=== PATIENT | female | born 1935 | race Caucasian/White ===

== ENCOUNTER 2017-10-29 12:19 | Emergency (ER) | payer OTHER, BC ==
[~2017-10-29] VITALS: Ht 152.4 cm; Wt 43.1 kg
[2017-10-29 12:28] VITALS: Ht 152.4 cm; Wt 43.1 kg
[2017-10-29 15:00] VITALS: BP 130/66
== END 2017-10-29 15:00 | disposition home or self-care (01) ==
LOC: ED 12:19
DX: S00.83XA Contusion of other part of head, initial encounter (principal); S60.311A Abrasion of right thumb, initial encounter; S50.312A Abrasion of left elbow, initial encounter; J44.9 Chronic obstructive pulmonary disease, unspecified; F03.90 Unspecified dementia, unspecified severity, without behavioral disturbance, psychotic disturbance, mood disturbance, and anxiety; G25.81 Restless legs syndrome; Z88.0 Allergy status to penicillin; W01.198A Fall on same level from slipping, tripping and stumbling with subsequent striking against other object, initial encounter; Y93.89 Activity, other specified; Y99.8 Other external cause status; Y92.89 Other specified places as the place of occurrence of the external cause

== ENCOUNTER 2017-11-13 15:44 | Emergency (ER) | payer OTHER, BC ==
[~2017-11-13] VITALS: Ht 154.9 cm; Wt 43.5 kg
[2017-11-13 15:59] VITALS: Ht 154.9 cm; Wt 43.5 kg
[2017-11-13 17:03] VITALS: BP 155/75
== END 2017-11-13 17:03 | disposition home or self-care (01) ==
LOC: ED 15:44
DX: K62.3 Rectal prolapse (principal); N81.10 Cystocele, unspecified; Z88.0 Allergy status to penicillin; Z90.710 Acquired absence of both cervix and uterus; J44.9 Chronic obstructive pulmonary disease, unspecified

== ENCOUNTER 2017-12-05 20:11 | Inpatient (IN) | payer OTHER, BC ==
[~2017-12-05] VITALS: Ht 157.5 cm; Wt 44.0 kg
[2017-12-05 20:31] VITALS: Ht 157.5 cm; Wt 44.0 kg
[2017-12-05] MEDS ORDERED: ADDERALL XR20 MG PO (21:49)
[2017-12-05] MEDS ORDERED: ALBUTEROL SULFAT3 ML NEB (21:49)
[2017-12-05] MEDS ORDERED: FLUOXETINE HYDR20 M2 PO (21:50)
[2017-12-05] MEDS ORDERED: SYNTHROID0.075 MG PO (21:50)
[2017-12-05] MEDS ORDERED: NOR5 PO (21:50)
[2017-12-05] MEDS ORDERED: PREMARIN V0.625 MG/G VG (21:51)
[2017-12-05] MEDS ORDERED: PREMARIN0.3 MG PO (21:51)
[2017-12-05] MEDS ORDERED: REQUIP0.5 MG PO (21:51)
[2017-12-05] MEDS ORDERED: DIOVAN160 MG PO (21:52)
[2017-12-05] MEDS ORDERED: ALBUTEROL SULFAT0.51 NEB (21:53)
[2017-12-05] MEDS ORDERED: ATRUD HHN (21:53)
[2017-12-05 21:55] LABS: PLATELET COUNT 375 x10^3mcL (130-400)
[2017-12-05 22:07] LABS: CALCIUM 8.6 mg/dL (8.5-10.1); CARBON DIOXIDE 27.3 mmol/L (21-32); CHLORIDE SERUM 107 mmol/L (98-107); CREATININE SERUM 0.9 mg/dL (0.6-1.0); GLUCOSE SERUM 105 mg/dL (74-106); POTASSIUM SERUM 4.1 mmol/L (3.5-5.1); SODIUM SERUM 140 mmol/L (136-145)
[2017-12-05 22:16] LABS: RED CELL DISTRIBUTION WIDTH 18.1 % (11.5-14.5)
[2017-12-05 22:18] LABS: BAND NEUTROPHIL 2 % (0-10); MONOCYTE 7 % (0-7); SEGMENTED NEUTROPHILS 71 % (37-75); rbc morphology (normal/abnorm) ABNORMAL (NORMAL)
[2017-12-05 22:19] LABS: PLATELET MORPHOLOGY PLATELETS NORMAL
[2017-12-05 22:39] VITALS: BP 135/52
[2017-12-05 22:59] LABS: T3 TOTAL 1.02 ng/mL
[2017-12-05 23:13] LABS: MAGNESIUM 1.9 mg/dL (1.8-2.4); PHOSPHOROUS 4.2 mg/dL (2.5-4.9)
[2017-12-05 23:17] LABS: CHOLESTEROL/HDL RATIO 1.9
[2017-12-05 23:37] LABS: FREE T4 1.12 ng/dL (0.76-1.46); FREE THYROXINE INDEX 3.3 ug/dL (1.4-4.5); T4(THYROXINE) 9.6 ug/dL (4.7-13.3)
[2017-12-06 01:05] VITALS: BP 125/52
[2017-12-06 01:31] LABS: RED BLOOD CELLS 3.97 M/mm3 (4.10-5.10)
[2017-12-06 01:45] LABS: TOTAL IRON BINDING CAPACITY 358 ug/dL (250-450)
[2017-12-06 01:47] LABS: IRON 26 ug/dL (50-170)
[2017-12-06 03:31] LABS: microscopic required? YES; urine erythrocyte NEGATIVE (NEGATIVE)
[2017-12-06 03:32] LABS: UA SPECIFIC GRAVITY 1.025T (1.005-1.035)
[2017-12-06 05:15] VITALS: BP 138/42
[2017-12-06 06:42] LABS: BASOPHIL % 0.7 % (0-2); PLATELET COUNT 364 x10^3mcL (130-400)
[2017-12-06 06:56] LABS: CALCIUM 8.3 mg/dL (8.5-10.1); CARBON DIOXIDE 27.4 mmol/L (21-32); CHLORIDE SERUM 109 mmol/L (98-107); CREATININE SERUM 0.7 mg/dL (0.6-1.0); GLUCOSE SERUM 71 mg/dL (74-106); PHOSPHOROUS 3.5 mg/dL (2.5-4.9); POTASSIUM SERUM 3.8 mmol/L (3.5-5.1); SODIUM SERUM 142 mmol/L (136-145)
[2017-12-06 07:00] LABS: RED CELL DISTRIBUTION WIDTH 17.9 % (11.5-14.5)
[2017-12-06 08:51] VITALS: BP 115/49
[2017-12-06 12:56] VITALS: BP 143/56
[2017-12-06 17:07] VITALS: BP 156/73
[2017-12-06] MEDS ORDERED: ADDERALL20 MG PO (18:13)
[2017-12-06 20:47] VITALS: BP 155/45
[2017-12-07 05:31] VITALS: BP 126/51
[2017-12-07 07:00] LABS: ALKALINE PHOSPHATASE 84 U/L (46-116); ALT/SGPT 19 U/L (14-59); AST/SGOT 36 U/L (15-37); BILIRUBIN TOTAL 0.25 mg/dL (0.20-1.00); CALCIUM 8.4 mg/dL (8.5-10.1); CARBON DIOXIDE 27.3 mmol/L (21-32); CHLORIDE SERUM 101 mmol/L (98-107); CREATININE SERUM 0.6 mg/dL (0.6-1.0); GLUCOSE SERUM 86 mg/dL (74-106); MAGNESIUM 1.8 mg/dL (1.8-2.4); PHOSPHOROUS 3.3 mg/dL (2.5-4.9); POTASSIUM SERUM 3.9 mmol/L (3.5-5.1); SODIUM SERUM 137 mmol/L (136-145)
[2017-12-07 07:04] LABS: ALBUMIN 2.5 g/dL (3.4-5.0); TOTAL PROTEIN, SERUM 5.6 g/dL (6.4-8.2)
[2017-12-07 08:27] LABS: PLATELET COUNT 359 x10^3mcL (130-400)
[2017-12-07 08:28] LABS: RED CELL DISTRIBUTION WIDTH 17.8 % (11.5-14.5)
[2017-12-07 08:45] VITALS: BP 117/51
[2017-12-07 11:22] LABS: ATYPICAL LYMPH 2 %; BAND NEUTROPHIL 0 % (0-10); MONOCYTE 8 % (0-7); SEGMENTED NEUTROPHILS 58 % (37-75)
[2017-12-07 11:23] LABS: BASOPHIL 2 % (0-2)
[2017-12-07 12:11] LABS: PLATELET MORPHOLOGY PLATELETS NORMAL; rbc morphology (normal/abnorm) ABNORMAL (NORMAL)
[2017-12-07 12:48] VITALS: BP 148/59
[2017-12-07 15:54] VITALS: BP 126/57
[2017-12-07 20:55] VITALS: BP 153/58
[2017-12-08 05:29] VITALS: BP 151/65
[2017-12-08 06:27] LABS: CALCIUM 8.4 mg/dL (8.5-10.1); CARBON DIOXIDE 28.2 mmol/L (21-32); CHLORIDE SERUM 103 mmol/L (98-107); CREATININE SERUM 0.7 mg/dL (0.6-1.0); GLUCOSE SERUM 91 mg/dL (74-106); POTASSIUM SERUM 3.7 mmol/L (3.5-5.1); SODIUM SERUM 139 mmol/L (136-145)
[2017-12-08 07:24] LABS: BASOPHIL % 0.2 % (0-2); PLATELET COUNT 385 x10^3mcL (130-400)
[2017-12-08 07:30] LABS: RED CELL DISTRIBUTION WIDTH 17.7 % (11.5-14.5)
[2017-12-08 09:36] VITALS: BP 145/67
[2017-12-08 18:02] VITALS: BP 136/55
[2017-12-08 21:13] VITALS: BP 137/54
[2017-12-09 06:05] VITALS: BP 136/57
[2017-12-09 06:37] LABS: PLATELET COUNT 361 x10^3mcL (130-400)
[2017-12-09 06:42] LABS: RED CELL DISTRIBUTION WIDTH 17.8 % (11.5-14.5)
[2017-12-09 06:54] LABS: CALCIUM 8.6 mg/dL (8.5-10.1); CARBON DIOXIDE 28.3 mmol/L (21-32); CHLORIDE SERUM 103 mmol/L (98-107); CREATININE SERUM 0.6 mg/dL (0.6-1.0); GLUCOSE SERUM 86 mg/dL (74-106); POTASSIUM SERUM 3.7 mmol/L (3.5-5.1); SODIUM SERUM 137 mmol/L (136-145)
[2017-12-09 08:46] LABS: MONOCYTE 6 % (0-7); SEGMENTED NEUTROPHILS 73 % (37-75); rbc morphology (normal/abnorm) NORMAL (NORMAL)
[2017-12-09 10:48] VITALS: BP 116/57
[2017-12-09 17:42] VITALS: BP 132/60
[2017-12-09 20:52] VITALS: BP 154/60
[2017-12-10 05:35] VITALS: BP 142/87
[2017-12-10 08:49] VITALS: BP 122/66
[2017-12-10] MEDS ORDERED: FER300 PO (09:04)
[2017-12-10] MEDS ORDERED: LORAZEPAM0.5 MG PO (09:14)
[2017-12-10] MEDS ORDERED: VITC PO (09:14)
[2017-12-10] MEDS ORDERED: COL100 PO (09:15)
[2017-12-10] MEDS ORDERED: MOT800 PO (09:36)
[2017-12-10 10:46] VITALS: BP 122/66
[2017-12-10 13:17] VITALS: BP 117/66
[2017-12-10 13:19] VITALS: BP 120/63
== END 2017-12-10 13:31 | disposition home or self-care (01) | DRG 393 ==
LOC: ED 20:11 → DU 21:53 → MU 21:53 → DU 22:33 → MU 12-08 10:44
PROVIDERS: Emergency Medicine; Family Medicine
DX: K62.3 Rectal prolapse (principal); G93.41 Metabolic encephalopathy; E43 Unspecified severe protein-calorie malnutrition; N17.0 Acute kidney failure with tubular necrosis; N39.0 Urinary tract infection, site not specified; R64 Cachexia; N81.89 Other female genital prolapse; N81.12 Cystocele, lateral; G30.9 Alzheimer's disease, unspecified; F02.80 Dementia in other diseases classified elsewhere, unspecified severity, without behavioral disturbance, psychotic disturbance, mood disturbance, and anxiety; J45.909 Unspecified asthma, uncomplicated; I10 Essential (primary) hypertension; G25.81 Restless legs syndrome; D50.9 Iron deficiency anemia, unspecified; D63.8 Anemia in other chronic diseases classified elsewhere; M47.812 Spondylosis without myelopathy or radiculopathy, cervical region; E87.8 Other disorders of electrolyte and fluid balance, not elsewhere classified; E02 Subclinical iodine-deficiency hypothyroidism; N95.2 Postmenopausal atrophic vaginitis; N81.10 Cystocele, unspecified; Z68.20 Body mass index [BMI] 20.0-20.9, adult; Z88.0 Allergy status to penicillin; Z88.1 Allergy status to other antibiotic agents; E86.0 Dehydration
CPT/HCPCS: 83880; 84439; 97110-GP; 97116-GP; 97530-GP; J0696; J2060; J2270; J2405; J2916; J3010; J7030; J7620; Q0092

== ENCOUNTER 2018-07-18 02:29 | Emergency (ER) | payer OTHER, BC ==
[~2018-07-18] VITALS: Ht 152.4 cm; Wt 45.4 kg
[~2018-07-18 02:29] MED LIST: ADDERALL XR20 MG PO; ADDERALL20 MG PO; ALBUTEROL SULFAT0.51 NEB; ALBUTEROL SULFAT3 ML NEB; ATRUD HHN; COL100 PO; DIOVAN160 MG PO; FER300 PO; FLUOXETINE HYDR20 M2 PO; LORAZEPAM0.5 MG PO; MOT800 PO; NOR5 PO; PREMARIN V0.625 MG/G VG; PREMARIN0.3 MG PO; REQUIP0.5 MG PO; SYNTHROID0.075 MG PO; VITC PO
[2018-07-18 02:37] VITALS: Ht 152.4 cm; Wt 45.4 kg
[2018-07-18 04:05] VITALS: BP 159/77
== END 2018-07-18 04:05 | disposition home or self-care (01) ==
LOC: ED 02:29
DX: S61.512A Laceration without foreign body of left wrist, initial encounter (principal); J44.9 Chronic obstructive pulmonary disease, unspecified; Z88.0 Allergy status to penicillin; Z88.1 Allergy status to other antibiotic agents; Z98.890 Other specified postprocedural states; W18.39XA Other fall on same level, initial encounter; Y93.89 Activity, other specified; Y92.89 Other specified places as the place of occurrence of the external cause; Y99.8 Other external cause status

== ENCOUNTER 2018-09-25 13:25 | Emergency (ER) | payer OTHER, BC ==
[~2018-09-25] VITALS: Ht 149.9 cm; Wt 45.4 kg
[2018-09-25 13:31] VITALS: Ht 149.9 cm; Wt 45.4 kg
[2018-09-25 14:58] VITALS: BP 133/65
== END 2018-09-25 14:58 | disposition home or self-care (01) ==
LOC: ED 13:25
DX: S42.032A Displaced fracture of lateral end of left clavicle, initial encounter for closed fracture (principal); W18.30XA Fall on same level, unspecified, initial encounter; Y93.89 Activity, other specified; Y92.89 Other specified places as the place of occurrence of the external cause; Y99.8 Other external cause status; Z88.0 Allergy status to penicillin; Z88.1 Allergy status to other antibiotic agents; Z88.8 Allergy status to other drugs, medicaments and biological substances; J44.9 Chronic obstructive pulmonary disease, unspecified; F03.90 Unspecified dementia, unspecified severity, without behavioral disturbance, psychotic disturbance, mood disturbance, and anxiety
CPT/HCPCS: Q0092

== ENCOUNTER 2018-11-21 16:26 | Emergency (ER) | payer OTHER, BC ==
[~2018-11-21] VITALS: Ht 160 cm; Wt 44.5 kg
[2018-11-21 16:41] VITALS: Ht 160 cm; Wt 44.5 kg
[2018-11-21 18:07] LABS: BASOPHIL % 0.6 % (0-2); PLATELET COUNT 348 x10^3mcL (130-400)
[2018-11-21 18:23] LABS: CARBON DIOXIDE 27.3 mmol/L (21-32); CHLORIDE SERUM 104 mmol/L (98-107); CREATININE SERUM 0.8 mg/dL (0.6-1.0); GLUCOSE SERUM 90 mg/dL (74-106); POTASSIUM SERUM 3.7 mmol/L (3.5-5.1); SODIUM SERUM 142 mmol/L (136-145)
[2018-11-21 18:31] LABS: ALKALINE PHOSPHATASE 106 U/L (46-116); ALT/SGPT 23 U/L (14-59); AST/SGOT 24 U/L (15-37); BILIRUBIN TOTAL 0.2 mg/dL (0.20-1.00); CHOLESTEROL 153 mg/dL (<200); LIPASE 81 IU/L (73-393); T4(THYROXINE) 7.7 ug/dL (4.7-13.3); TOTAL PROTEIN, SERUM 7.3 g/dL (6.4-8.2)
[2018-11-21 18:32] LABS: ALBUMIN 3.3 g/dL (3.4-5.0); AMYLASE 24 U/L (25-115); HDL CHOLESTEROL 82 mg/dL (40-60)
[2018-11-21 20:03] LABS: microscopic required? YES; urine erythrocyte NEGATIVE (NEGATIVE)
[2018-11-21 20:06] LABS: AMPHETAMINE QUAL UR POSITIVE (See below)
[2018-11-21 20:37] VITALS: BP 149/71
== END 2018-11-21 20:37 | disposition home or self-care (01) ==
LOC: ED 16:26
PROVIDERS: Emergency Medicine
DX: S05.11XA Contusion of eyeball and orbital tissues, right eye, initial encounter (principal); S40.022A Contusion of left upper arm, initial encounter; E46 Unspecified protein-calorie malnutrition; K44.9 Diaphragmatic hernia without obstruction or gangrene; I10 Essential (primary) hypertension; E03.9 Hypothyroidism, unspecified; E78.00 Pure hypercholesterolemia, unspecified; J44.9 Chronic obstructive pulmonary disease, unspecified; Z88.0 Allergy status to penicillin; Z88.1 Allergy status to other antibiotic agents; Z88.8 Allergy status to other drugs, medicaments and biological substances; W19.XXXA Unspecified fall, initial encounter; Y93.89 Activity, other specified; Y92.89 Other specified places as the place of occurrence of the external cause; Y99.8 Other external cause status
CPT/HCPCS: 36415; 83880; Q0092